=== PATIENT | male | born 1985 | race Caucasian/White ===

== ENCOUNTER 2020-10-09 02:58 | Emergency (ER) | payer OTHER ==
[~2020-10-09] VITALS: Ht 175.3 cm; Wt 77.1 kg
--- NOTE | 2020-10-09 03:18 | NUR ---
Dr. Veras at bedside for MSE.
--- NOTE | 2020-10-09 03:36 | NUR ---
Patient does not wish to proceed with medical care recommended by Dr. Veras. Patient given information related to possible complications, up to and including , which could occur as a result of leaving the hospital at this time. Patient verbalizes understanding of risks involved due to leaving against medical advice. Patient has signed AMA form.
[2020-10-09 04:03] VITALS: BP 152/95
== END 2020-10-09 04:04 | disposition left against medical advice (07) ==
LOC: ER 03:05
DX: G45.9 Transient cerebral ischemic attack, unspecified (principal); Z87.11 Personal history of peptic ulcer disease
CPT/HCPCS: 93005; A4663